=== PATIENT | male | born 1930 | race Caucasian/White ===

== ENCOUNTER 2019-07-07 07:24 | Observation (INO) | payer MEDICARE ==
--- NOTE | 2019-07-07 07:56 | ER Document Report ---
ED General - General Chief Complaint: Abdominal Distention Stated Complaint: SWOLLEN ABDOMEN Time Seen by Provider: 07/07/19 07:56 Primary Care Provider: TAYA GUARDADO MD [Primary Care Provider] - Follow up as needed Mode of Arrival: Medic Information source: Patient TRAVEL OUTSIDE OF THE [place] IN LAST 30 DAYS: No - HPI Onset: Last week Onset/Duration: Gradual Quality of pain: Pressure Severity: Moderate Pain Level: 3 Context: Patient is an 88-year-old male presenting to the emergency department chief complaint of swollen abdomen. Patient states that he is had multiple issues with fluid retention and ascites however he normally goes to [place] to have it managed however he states that he realized he can come to [facility] because it is closer to his home. Patient reports a 20 pound weight gain over the past week. At time of presentation patient is alert and oriented in no acute distress but does show increased work of breathing. Patient is jaundice and icteric. Associated symptoms: Shortness of breath, Weakness. denies: Nonproductive cough, Productive cough, Diarrhea, Nausea, Vomiting Exacerbated by: Movement, Walking Relieved by: Denies Similar symptoms previously: Yes Recently seen / treated by doctor: No - Related Data Allergies/Adverse Reactions: No Known Allergies Allergy (Verified 07/07/19 07:46) Past Medical History - General Information source: Patient - Social History Smoking Status: Unknown if Ever Smoked Cigarette use (# per day): No Smoking Education Provided: No Frequency of alcohol use: None Drug Abuse: None Family History: Reviewed & Not Pertinent Patient has suicidal ideation: No Patient has homicidal ideation: No GI Medical History: Reports: Hx Liver Failure Review of Systems - Review of Systems Constitutional: Weakness, Weight gain EENT: No symptoms reported Cardiovascular: No symptoms reported Respiratory: Short of breath Gastrointestinal: See HPI, Abdomen distended, Abdominal pain. denies: Diarrhea, Nausea, Vomiting Genitourinary: Retention Male Genitourinary: No symptoms reported Musculoskeletal: No symptoms reported Skin: No symptoms reported Hematologic/Lymphatic: No symptoms reported Neurological/Psychological: No symptoms reported -: Yes All other systems reviewed and negative Physical Exam - Vital signs Vitals: Temp Pulse Resp BP Pulse Ox 97.6 F 90 21 H 110/57 L 99 07/07/19 07:34 07/07/19 07:34 07/07/19 07:34 07/07/19 07:34 07/07/19 07:34 - Notes Notes: PHYSICAL EXAMINATION: GENERAL: Patient is a 88-year-old male presenting to the emergency department chief complaint of swollen abdomen and 20 pound weight gain in the past 1 week. HEAD: Atraumatic, normocephalic. EYES: Pupils equal round and reactive to light, extraocular movements intact, sclera are obviously icteric. ENT: nares patent, oropharynx clear without exudates. Moist mucous membranes. NECK: Normal range of motion, supple without lymphadenopathy, no appreciable JVD LUNGS: Lungs clear to auscultation bilaterally and equal. Patient does seem to have increased work of breathing no wheezes rales or rhonchi. HEART: Regular rate and rhythm without murmurs ABDOMEN: Soft, tender markedly distended, normal bowel sounds. No guarding, no rebound. No masses appreciated. EXTREMITIES: Active full range of motion, patient does show signs of cellulitis and fluid retention bilateral lower extremities. NEUROLOGICAL: No focal neurological deficits. Moves all extremities spontaneously and on command. SKIN: Warm, Dry, and intact. Patient does show signs of jaundice and has cellulitis bilateral lower extremities as described above Course - Re-evaluation Re-evalutation: 07/07/19 10:25 Patient has been maintained on a manager cardiac cath while in the emergency department. Patient has remained stable. Review of lab work demonstrates ammonia level of 52.5 BNP of 1110. Ultrasound demonstrates obvious large amount of fluid retention in the abdomen. Patient is given lactulose initial dose in the emergency department and 1 g of Rocephin IV for management of cellulitis to lower extremities. Patient is consulted to the hospitalist for admission management and paracentesis for the ascites. Patient is agreeable with care plan at this time. - Vital Signs Vital signs: Temp Pulse Resp BP Pulse Ox 97.6 F 90 13 107/53 L 100 07/07/19 07:34 07/07/19 07:34 07/07/19 10:00 07/07/19 09:31 07/07/19 10:00 - Laboratory Result Diagrams: 07/07/19 08:50 07/07/19 08:50 Laboratory results interpreted by me: 07/07/19 07/07/19 07/07/19 08:50 08:50 08:50 RBC 3.03 L Hgb 10.4 L Hct 29.7 L MCV 98 H MCH 34.3 H RDW 20.5 H Plt Count 104 L Lymph % (Auto) 7.2 L Seg Neutrophils % 84.3 H PT 19.9 H Sodium 136.6 L Potassium 3.5 L Carbon Dioxide 21 L Glucose 135 H Calcium 8.3 L Total Bilirubin 15.2 H Direct Bilirubin 11.9 H AST 155 H ALT 94 H Alkaline Phosphatase 353 H Ammonia NT-Pro-B Natriuret Pep Albumin 2.4 L Lipase 363.0 H 07/07/19 07/07/19 08:50 08:50 RBC Hgb Hct MCV MCH RDW Plt Count Lymph % (Auto) Seg Neutrophils % PT Sodium Potassium Carbon Dioxide Glucose Calcium Total Bilirubin Direct Bilirubin AST ALT Alkaline Phosphatase Ammonia 52.5 H NT-Pro-B Natriuret Pep 1110 H Albumin Lipase - Diagnostic Test Radiology reviewed: Reports reviewed - EKG Interpretation by Me EKG shows normal: Sinus rhythm Rate: Normal Rhythm: APC's Heart block present: 1st Degree When compared to previous EKG there are: Previous EKG unavailable Additional EKG results interpreted by me: 07/07/19 10:24 EKG is interpreted by me demonstrates sinus rhythm 84 bpm, patient does have intermittent PACs, there is a first-degree AV block with KY interval of 224 ms. No prior EKG is available. Discharge - Discharge Clinical Impression: Shortness of breath Cellulitis Qualifiers: Site of cellulitis: extremity Site of cellulitis of extremity: lower extremity Laterality: unspecified laterality Qualified Code(s): L03.119 - Cellulitis of unspecified part of limb Ascites Qualifiers: Ascites type: other type Qualified Code(s): R18.8 - Other ascites Condition: Fair Disposition: ADMITTED INPATIENT Admitting Provider: Cate (Hospitalist) Unit Admitted: Telemetry Referrals: TAYA GUARDADO MD [Primary Care Provider] - Follow up as needed
[2019-07-07 09:12] LABS: INTERNATIONAL RATION (INR) 1.67; PROTHROMBIN TIME 19.9 SEC (11.4-15.4)
[2019-07-07 09:19] LABS: ABSOLUTE EOSINOPHILS # (AUTO) 0.1 10^3/uL (0.0-0.6); ABSOLUTE LYMPHOCYTES (AUTO) 0.7 10^3/uL (0.5-4.7); ABSOLUTE MONOCYTES (AUTO) 0.7 10^3/uL (0.1-1.4); BASOPHILS % (AUTO) 0.2 % (0-2); EOSINOPHILS % (AUTO) 1.3 % (0-6); HEMATOCRIT 29.7 % (37.9-51.0); HEMOGLOBIN 10.4 g/dL (13.5-17.0); LYMPHOCYTES % (AUTO) 7.2 % (13-45); MEAN CORPUSCULAR HEMOGLOBIN 34.3 pg (27.0-33.4); MEAN CORPUSCULAR VOLUME 98 fl (80-97); PLATELET COUNT 104 10^3/uL (150-450); RED BLOOD COUNT 3.03 10^6/uL (4.35-5.55); RED CELL DISTRIBUTION WIDTH 20.5 % (11.5-14.0); SEGMENTED NEUTROPHILS % (AUTO) 84.3 % (42-78); TOTAL CELLS COUNTED % (AUTO) 100 %; WHITE BLOOD COUNT 9.5 10^3/uL (4.0-10.5)
--- NOTE | 2019-07-07 09:24 | RADIOLOGY REPORT (SQ) ---
EXAM DESCRIPTION: CHEST SINGLE VIEW IMAGES COMPLETED DATE/TIME: 07/07/2019 9:15 am REASON FOR STUDY: sob COMPARISON: None. EXAM PARAMETERS: NUMBER OF VIEWS: One view. TECHNIQUE: Single frontal radiographic view of the chest acquired. RADIATION DOSE: NA LIMITATIONS: None. FINDINGS: LUNGS AND PLEURA: No opacities, masses or pneumothorax. No pleural effusion. MEDIASTINUM AND HILAR STRUCTURES: No masses. Contour normal. HEART AND VASCULAR STRUCTURES: Heart normal in size. Normal vasculature. BONES: No acute findings. HARDWARE: None in the chest. OTHER: No other significant finding. IMPRESSION: NO ACUTE RADIOGRAPHIC FINDING IN THE CHEST. TECHNICAL DOCUMENTATION: JOB ID: [id number] 2010 [employer]- All Rights Reserved Reading location - IP/workstation name: [email or web address]
[2019-07-07 09:27] LABS: ALBUMIN 2.4 g/dL (3.5-5.0); ALKALINE PHOSPHATASE 353 U/L (38-126); ANION GAP 11 (5-19); ASPARTATE AMINO TRANSFERASE 155 U/L (17-59); BILIRUBIN,DIRECT 11.9 mg/dL (0.0-0.4); BILIRUBIN,TOTAL 15.2 mg/dL (0.2-1.3); BLOOD UREA NITROGEN 20 mg/dL (7-20); CALCIUM 8.3 mg/dL (8.4-10.2); CARBON DIOXIDE 21 mmol/L (22-30); CHLORIDE 105 mmol/L (98-107); CREATINE KINASE 69 U/L (55-170); GLUCOSE 135 mg/dL (75-110); POTASSIUM 3.5 mmol/L (3.6-5.0); TOTAL PROTEIN 6.9 g/dL (6.3-8.2)
[2019-07-07 09:41] LABS: TROPONIN I 0.047 ng/mL
--- NOTE | 2019-07-07 09:43 | RADIOLOGY REPORT (SQ) ---
EXAM DESCRIPTION: U/S ABDOMEN LIMITED W/O DOP IMAGES COMPLETED DATE/TIME: 07/07/2019 9:31 am REASON FOR STUDY: Eval for ascites COMPARISON: None. TECHNIQUE: Limited Static and real time quinonez scale imaging performed of the 4 abdominal quadrants an d the midline. LIMITATIONS: None. FINDINGS: ASCITES: Large volume ascites. OTHER: No other significant finding. IMPRESSION: Large volume ascites. TECHNICAL DOCUMENTATION: JOB ID: [id number] 2010 [employer]- All Rights Reserved Reading location - IP/workstation name: [email or web address]
[2019-07-07] MEDS ORDERED: LACTULOSE SYRUP 20 GM/30 ML UDCUP PO ONE (10:08)
[2019-07-07] MEDS ORDERED: CEFTRIAXONE 1 GM/D5W RTU 1 GM/50 ML RTUPB IV ONE (10:14)
[2019-07-07] MEDS ORDERED: ONDANSETRON 4 MG TAB.RAPDIS PO PRN (10:43)
[2019-07-07] MEDS ORDERED: ONDANSETRON HCL INJ/PF 4 MG/2 ML SDV IV PRN (10:43)
--- NOTE | 2019-07-07 11:08 | PDOC H&P ---
History of Present Illness Admission Date/PCP: 07/07/19 10:37 TAYA GUARDADO MD History of Present Illness: BRAN NEWMAN is a 88 year old male admitted with a history of worsening shortness of breath, abdominal pain, and 20 pound weight gain over 1 week. She states about 4 months ago he was diagnosed with liver failure and since then has been treated down in [place] at [facility] by gastroenterology. Patient states he came up here to [place] today because it is closer to his home. Patient also states that he has been unable to void for the last 24 hours due to abdominal distention. Patient is speaking in full sentences in no respiratory distress Patient states that he has had 2 abdominal paracentesis the first 1 about a month ago with 4 L drained and the second one about 2 weeks ago with 1 L drained. States he is not a liver transplant candidate. And also states that he wants to be a DNR. Patient states that he is always jaundiced now, this is not a new finding. Patient states he came in because his legs were starting to swell once again as they had done previously prior to his first tap. Social History Smoking Status: Unknown if Ever Smoked - Advance Directive Resuscitation Status: Do Not Resuscitate Family History Family History: Reviewed & Not Pertinent Parental Family History Reviewed: No Children Family History Reviewed: No Sibling(s) Family History Reviewed.: No Medication/Allergy Home Medications: Furosemide [Lasix 40 mg Tablet] DAILY 07/07/19 Pantoprazole Sodium [Protonix [address] Tablet] BID 07/07/19 Potassium Chloride BID 07/07/19 Spironolactone 100 mg PO DAILY 07/07/19 Allergies/Adverse Reactions: No Known Allergies Allergy (Verified 07/07/19 07:46) Review of Systems Constitutional: PRESENT: as per HPI, weakness Cardiovascular: PRESENT: dyspnea on exertion, edema. ABSENT: chest pain, or thropnea, palpitations Respiratory: PRESENT: dyspnea Gastrointestinal: PRESENT: abdominal pain Genitourinary: PRESENT: difficulty urinating Neurological: ABSENT: abnormal gait, abnormal speech, confusion, dizziness, focal weakness, syncope Psychiatric: ABSENT: anxiety, depression, homidical ideation, suicidal ideation Physical Exam Vital Signs: Temp Pulse Resp BP Pulse Ox 97.6 F 90 14 107/53 L 99 07/07/19 07:34 07/07/19 07:34 07/07/19 10:30 07/07/19 09:31 07/07/19 10:30 Intake & Output 07/06/19 07/07/19 07/08/19 06:59 06:59 06:59 Weight 88.7 kg General appearance: PRESENT: cooperative, hard of hearing, mild distress Respiratory exam: PRESENT: clear to auscultation nora. ABSENT: rales, rhonchi, wheezes Cardiovascular exam: PRESENT: RRR. ABSENT: diastolic murmur, rubs, systolic murmur GI/Abdominal exam: PRESENT: ascites, distended, firm, hypoactive bowel sounds, rigid, tenderness - Generalized tenderness due to distention Gentrourinary exam: PRESENT: other - Unable to insert Nava catheter due to suprapubic edema Extremities exam: PRESENT: pedal edema, +2 edema, other - Bilateral lower leg cellulitis secondary to edema Neurological exam: PRESENT: alert, awake, oriented to person, oriented to place, oriented to time, oriented to situation, CN II-XII grossly intact, other - Pa tient is alert awake oriented and very conversant about his medical history. ABSENT: motor sensory deficit Psychiatric exam: PRESENT: appropriate affect, normal mood. ABSENT: homicidal ideation, suicidal ideation Results Laboratory Results: 07/07/19 08:50 07/07/19 08:50 07/07/19 07/07/19 07/07/19 08:50 08:50 08:50 WBC 9.5 RBC 3.03 L Hgb 10.4 L Hct 29.7 L MCV 98 H MCH 34.3 H MCHC 35.0 RDW 20.5 H Plt Count 104 L Seg Neutrophils % 84.3 H Sodium 136.6 L Potassium 3.5 L Chloride 105 Carbon Dioxide 21 L Anion Gap 11 BUN 20 Creatinine 1.06 Est GFR ( Amer) > 60 Glucose 135 H Lactic Acid 2.0 Calcium 8.3 L Total Bilirubin 15.2 H AST 155 H Alkaline Phosphatase 353 H Ammonia Total Protein 6.9 Albumin 2.4 L Lipase 363.0 H 07/07/19 08:50 WBC RBC Hgb Hct MCV MCH MCHC RDW Plt Count Seg Neutrophils % Sodium Potassium Chloride Carbon Dioxide Anion Gap BUN Creatinine Est GFR ( Amer) Glucose Lactic Acid Calcium Total Bilirubin AST Alkaline Phosphatase Ammonia 52.5 H Total Protein Albumin Lipase 07/07/19 07/07/19 08:50 08:50 Creatine Kinase 69 Troponin I 0.047 NT-Pro-B Natriuret Pep 1110 H Impressions: Abdomen Ultrasound 07/07/19 08:09 IMPRESSION: Large volume ascites. Chest X-Ray 07/07/19 08:09 IMPRESSION: NO ACUTE RADIOGRAPHIC FINDING IN THE CHEST. Assessment and Plan - Diagnosis (1) Liver failure Is this a current diagnosis for this admission?: Yes (2) Increased ammonia level Is this a current diagnosis for this admission?: Yes (3) Ascites Qualifiers: Ascites type: other type Qualified Code(s): R18.8 - Other ascites Is this a current diagnosis for this admission?: Yes (4) Cellulitis Qualifiers: Site of cellulitis: extremity Site of cellulitis of extremity: lower extremity Laterality: unspecified laterality Qualified Code(s): L03.119 - Cellulitis of unspecified part of limb Is this a current diagnosis for this admission?: Yes (5) Shortness of breath Is this a current diagnosis for this admission?: Yes (6) Cirrhosis of liver Is this a current diagnosis for this admission?: Yes - Plan Summary Summary: Patient will be admitted for IV Lasix, spironolactone, lactulose, interventional radiology for paracentesis. 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 Hopefully we can treat patient's cellulitis and ascites and patient can be discharged back to the care of his primary physicians in [place]. Explained all this to the patient and he understands Patient will be treated with IV medications to include antibiotics, try to schedule IR today - Time Time Spent with patient: 35 or more minutes
[2019-07-07] MEDS ORDERED: SPIRONOLACTONE 25 MG TABLET PO ONE ×2 (11:30→19:06)
--- NOTE | 2019-07-07 13:14 | RADIOLOGY REPORT (SQ) ---
EXAM DESCRIPTION: U/S ABD PARACENTESIS IMAGES COMPLETED DATE/TIME: 07/07/2019 12:55 pm REASON FOR STUDY: ascites, liver failure COMPARISON 07/07/2019 LIMITATIONS: None. PROCEDURE: After obtaining informed consent, the patient was brought to the ultrasound suite. The p rocedure was performed with the patient on a gurney. Ultrasound was used to identify a prominent poc ket of ascites in the right lower quadrant. An appropriate access site was selected. The patient wa s prepped and draped in usual sterile fashion. The access site was anesthetized with 10 mL 1% lidoc mariann. A Ylfy-E-Jnirafvr needle was advanced into the fluid. After aspiration of fluid the needle, t he catheter was advanced off the needle into the fluid. A total of 9,600 mL of clear, straw-colored fluid was removed. The patient tolerated the procedure well left the department in satisfactory condi tion. IMPRESSION: Successful ultrasound-guided paracentesis COMMENT: Patient medication list reviewed: Yes- Quality ID# [id number]:Eligible professional attests to doc umenting in the medical record they obtained, updated, or reviewed the patient's current medications. TECHNICAL DOCUMENTATION: JOB ID: [id number] 2010 [employer]- All Rights Reserved Reading location - IP/workstation name: [email or web address]
[2019-07-07] MEDS: FAMOTIDINE INJ/PF 20 MG/2 ML SDV IV SCH ×2 (13:57→21:18)
[2019-07-07] MEDS: FUROSEMIDE INJ/PF 40 MG/4 ML SDV IV SCH ×2 (13:58→21:18)
[2019-07-07] MEDS: DOCUSATE SODIUM 100 MG CAPSULE PO SCH (13:58)
[2019-07-07 14:03] LABS: FLUID APPEARANCE CLEAR; FLUID COLOR YELLOW; FLUID SOURCE ASCITES; FLUID TYPE PERITONEAL; FLUID VISCOSITY LIQUID
[2019-07-07] MEDS: SPIRONOLACTONE 25 MG TABLET PO SCH (14:56)
[2019-07-07] MEDS: LACTULOSE SYRUP 20 GM/30 ML UDCUP PO SCH ×3 (14:56→21:18)
[2019-07-07] MEDS: ALBUMIN HUMAN 12.5 GM/50 ML RTUINJ IV SCH ×4 (14:57→18:15)
[2019-07-07] MEDS ORDERED: DEXTROSE 40% GEL 15 GM TUBE PO PRN ×2 (15:50)
[2019-07-07] MEDS ORDERED: DEXTROSE 50%-WATER 25 GM/50 ML DISP.SYRIN IV PRN ×2 (15:50)
[2019-07-07] MEDS ORDERED: GLUCAGON,HUMAN RECOMB 1 MG INJ IM PRN (15:50)
[2019-07-07] MEDS: INSULIN LISPRO 100 UNIT/ML 3 ML VIAL SUBCUT SCH ×2 (16:22→21:19)
--- NOTE | 2019-07-07 16:23 | EKG REPORT ---
SEVERITY:- ABNORMAL ECG - SINUS RHYTHM ATRIAL PREMATURE COMPLEX FIRST DEGREE AV BLOCK PROBABLE LEFT ATRIAL ABNORMALITY NONSPECIFIC INTRAVENTRICULAR CONDUCTION DELAY : Confirmed by: Addis Hutchinson 07-Jul-2019 16:23:01
[2019-07-07] MEDS ORDERED: CEFTRIAXONE 1 GM/D5W RTU 1 GM/50 ML RTUPB IV SCH (18:00)
--- NOTE | 2019-07-07 20:25 | RADIOLOGY REPORT (SQ) ---
EXAM DESCRIPTION: Unenhanced CT scan of the abdomen and pelvis CLINICAL HISTORY: 88 years Male; shortness of breath, s/p paracentesis today TECHNIQUE: CT of the abdomen and pelvis without intravenous contrast. All CT scans at this facility use dose modulation, iterative reconstruction, and/or weight based dosing when appropriate to reduce radiation dose to as low as reasonably achievable. This exam was performed according to our department optimization program which includes automated exposure control, adjustment of the mA and/or kv according to patient size and/or use of iterative reconstruction technique. COMPARISON: None. FINDINGS: Lower chest: Lung bases are clear. Coronary artery calcifications. There may be banding of the mitral valve. No pericardial abnormality. Calcifications are seen in the thoracic aorta. Abdomen: Liver and biliary tree: The liver is small and has a nodular appearance. The gallbladder surgically absent. Pancreas: Normal Spleen: The spleen is enlarged and measures 15 cm in length. Kidneys: Kidneys are normal in size, shape and position. No stones. No mass or hydronephrosis. Adrenal glands:Within normal limits Vascular structures: Calcifications are seen in the aorta and visceral vessels. There are dilated vascular structure seen extending from the splenic hilum to the region of the GE junction and these may represent varices. Retroperitoneum: Edema is present in the retroperitoneum. Abdominal wall: Small umbilical hernia is noted containing ascitic fluid. There is a right inguinal hernia also seen containing ascites GI: The unopacified bowel is not well seen. There may be thickening of the right colon at the splenic flexure. No bowel obstruction. Appendix: The appendix is not seen General: Ascites is present through the abdomen and pelvis. No free intraperitoneal air. Pelvis: Lymph nodes: No mass or lymphadenopathy Bladder: Unremarkable. Pelvis: No pelvic mass or adenopathy. 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 Methylmethacrylate is noted at L1 consistent with previous vertebroplasty. There appears to be fusion of the SI joints. IMPRESSION: 1. Findings suggestive of portal hypertension with splenomegaly, ascites and probable varices. 2. Atherosclerotic vascular calcifications. 3. Anasarca.
[2019-07-07] MEDS: CEFTRIAXONE 1 GM/D5W RTU 1 GM/50 ML RTUPB IV SCH (21:18)
[2019-07-07] MEDS: POTASSIUM CHLORIDE 10 MEQ TABLET.ER PO SCH (21:19)
[2019-07-08] MEDS ORDERED: MIDODRINE HCL 5 MG TABLET PO ONE ×2 (01:00→03:00)
[2019-07-08 01:56] LABS: APPEARANCE,URINE CLEAR; BILIRUBIN,URINE MODERATE (NEGATIVE); COLOR,URINE AMBER; GLUCOSE, URINE NEGATIVE (NEGATIVE); KETONES,URINE NEGATIVE (NEGATIVE); LEUKOCYTE ESTERASE,URINE NEGATIVE (NEGATIVE); NITRITE,URINE NEGATIVE (NEGATIVE); PROTEIN,URINE NEGATIVE (NEGATIVE); URINE SPECIFIC GRAVITY 1.012
[2019-07-08 05:50] LABS: ABSOLUTE EOSINOPHILS # (AUTO) 0.1 10^3/uL (0.0-0.6); ABSOLUTE LYMPHOCYTES (AUTO) 0.6 10^3/uL (0.5-4.7); ABSOLUTE MONOCYTES (AUTO) 0.5 10^3/uL (0.1-1.4); ABSOLUTE NEUT (AUTO) 7.1 10^3/uL (1.7-8.2); BASOPHILS % (AUTO) 0.5 % (0-2); EOSINOPHILS % (AUTO) 1.5 % (0-6); HEMATOCRIT 25.5 % (37.9-51.0); LYMPHOCYTES % (AUTO) 6.8 % (13-45); MEAN CORPUSCULAR HEMOGLOBIN 34.5 pg (27.0-33.4); MEAN CORPUSCULAR HGB CONC 35.2 g/dL (32.0-36.0); MEAN CORPUSCULAR VOLUME 98 fl (80-97); MONOCYTES % (AUTO) 6.3 % (3-13); RED CELL DISTRIBUTION WIDTH 20.4 % (11.5-14.0); SEGMENTED NEUTROPHILS % (AUTO) 84.9 % (42-78); TOTAL CELLS COUNTED % (AUTO) 100 %; WHITE BLOOD COUNT 8.4 10^3/uL (4.0-10.5)
[2019-07-08 05:53] LABS: INTERNATIONAL RATION (INR) 2.01; PROTHROMBIN TIME 23.1 SEC (11.4-15.4)
[2019-07-08 05:54] LABS: PARTIAL THROMBOPLASTIN TIME 43.6 SEC (23.5-35.8)
[2019-07-08 06:03] LABS: ALBUMIN 2.2 g/dL (3.5-5.0); ALKALINE PHOSPHATASE 240 U/L (38-126); AMYLASE 43 U/L (30-110); ANION GAP 7 (5-19); ASPARTATE AMINO TRANSFERASE 128 U/L (17-59); BILIRUBIN,DIRECT 12.7 mg/dL (0.0-0.4); BILIRUBIN,TOTAL 15.9 mg/dL (0.2-1.3); BLOOD UREA NITROGEN 22 mg/dL (7-20); CALCIUM 8.1 mg/dL (8.4-10.2); CARBON DIOXIDE 21 mmol/L (22-30); CHLORIDE 105 mmol/L (98-107); GLUCOSE 105 mg/dL (75-110); POTASSIUM 3.6 mmol/L (3.6-5.0)
[2019-07-08 06:17] LABS: PLATELET COUNT 82 10^3/uL (150-450)
[2019-07-08] MEDS: INSULIN LISPRO 100 UNIT/ML 3 ML VIAL SUBCUT SCH ×4 (07:38→21:40)
[2019-07-08] MEDS: CEFTRIAXONE 1 GM/D5W RTU 1 GM/50 ML RTUPB IV SCH ×2 (09:13→21:52)
[2019-07-08] MEDS: MIDODRINE HCL 5 MG TABLET PO SCH ×3 (09:14→17:23)
[2019-07-08] MEDS: POTASSIUM CHLORIDE 10 MEQ TABLET.ER PO SCH ×2 (09:14→21:52)
[2019-07-08] MEDS: FUROSEMIDE INJ/PF 40 MG/4 ML SDV IV SCH ×2 (09:14→21:51)
[2019-07-08] MEDS: LACTULOSE SYRUP 20 GM/30 ML UDCUP PO SCH ×4 (09:14→21:52)
[2019-07-08] MEDS: FAMOTIDINE INJ/PF 20 MG/2 ML SDV IV SCH ×2 (09:14→21:51)
[2019-07-08] MEDS: DOCUSATE SODIUM 100 MG CAPSULE PO SCH (09:15)
[2019-07-08] MEDS: SPIRONOLACTONE 25 MG TABLET PO SCH (09:15)
[2019-07-08] MEDS: MAGNESIUM SULFATE/D5W 1 GM/100 ML RTUPB IV SCH ×2 (10:41→11:47)
--- NOTE | 2019-07-08 10:48 | PDOC PROGRESS REPORT ---
Subjective Progress Note for:: 07/08/19 Reason For Visit: LIVER FAILURE,ASCITES, shortness OF BREATH,ABDOMINAL PAIN July 08, 2019 Admitted for abdominal ascites, cirrhosis, liver failure, abdominal pain, shortness of breath Physical Exam Vital Signs: Temp Pulse Resp BP Pulse Ox 98.3 F 77 16 81/40 L 95 07/07/19 23:46 07/08/19 05:00 07/07/19 23:46 07/08/19 05:00 07/07/19 23:46 Intake & Output 07/07/19 07/08/19 07/09/19 06:59 06:59 06:59 Intake Total 399 Output Total 600 Balance -201 Weight 82.5 kg General appearance: PRESENT: no acute distress Respiratory exam: PRESENT: clear to auscultation nora. ABSENT: rales, rhonchi, wheezes Cardiovascular exam: PRESENT: RRR. ABSENT: diastolic murmur, rubs, systolic murmur GI/Abdominal exam: PRESENT: distended, soft, other - No tenderness no rebound Neurological exam: PRESENT: alert, awake, oriented to person, oriented to place, oriented to time, oriented to situation, CN II-XII grossly intact. ABSENT: motor sensory deficit Psychiatric exam: PRESENT: appropriate affect, normal mood. ABSENT: homicidal ideation, suicidal ideation Skin exam: PRESENT: jaundice Results Laboratory Results: 07/08/19 05:29 07/08/19 05:29 07/07/19 07/08/19 07/08/19 11:35 00:10 05:29 WBC 8.4 RBC 2.60 L Hgb 9.0 L Hct 25.5 L MCV 98 H MCH 34.5 H MCHC 35.2 RDW 20.4 H Plt Count 82 L Seg Neutrophils % 84.9 H Sodium Potassium Chloride Carbon Dioxide Anion Gap BUN Creatinine Est GFR ( Amer) Glucose Calcium Magnesium Total Bilirubin AST Alkaline Phosphatase Ammonia Total Protein Albumin Amylase Lipase Urine Color NEVA Urine Appearance CLEAR Urine pH 5.0 Ur Specific Kinta 1.012 Urine Protein NEGATIVE Urine Glucose (UA) NEGATIVE Urine Ketones NEGATIVE Urine Blood NEGATIVE Urine Nitrite NEGATIVE Ur Leukocyte Esterase NEGATIVE Urine WBC (Auto) 4 Urine RBC (Auto) 0 Fluid Type PERITONEAL Fluid Source ASCITES Fluid Color YELLOW Fluid Appearance CLEAR Fluid Viscosity LIQUID Fluid WBC 79 Fluid RBC 54 07/08/19 07/08/19 05:29 05:29 WBC RBC Hgb Hct MCV MCH MCHC RDW Plt Count Seg Neutrophils % Sodium 132.9 L Potassium 3.6 Chloride 105 Carbon Dioxide 21 L Anion Gap 7 BUN 22 H Creatinine 0.97 Est GFR ( Amer) > 60 Glucose 105 Calcium 8.1 L Magnesium 1.4 L Total Bilirubin 15.9 H AST 128 H Alkaline Phosphatase 240 H Ammonia 23.6 Total Protein 6.0 L Albumin 2.2 L Amylase 43 Lipase 148.8 Urine Color Urine Appearance Urine pH Ur Specific Kinta Urine Protein Urine Glucose (UA) Urine Ketones Urine Blood Urine Nitrite Ur Leukocyte Esterase Urine WBC (Auto) Urine RBC (Auto) Fluid Type Fluid Source Fluid Color Fluid Appearance Fluid Viscosity Fluid WBC Fluid RBC 07/07/19 07/07/19 07/07/19 08:50 08:50 13:09 Creatine Kinase 69 66 Troponin I 0.047 NT-Pro-B Natriuret Pep 1110 H Impressions: Abdomen/Pelvis CT 07/07/19 00:00 IMPRESSION: 1. Findings suggestive of portal hypertension with splenomegaly, ascites and probable varices. 2. Atherosclerotic vascular calcifications. 3. Anasarca. Paracentesis Ultrasound 07/07/19 00:00 IMPRESSION: Successful ultrasound-guided paracentesis Abdomen Ultrasound 07/07/19 08:09 IMPRESSION: Large volume ascites. Chest X-Ray 07/07/19 08:09 IMPRESSION: NO ACUTE RADIOGRAPHIC FINDING IN THE CHEST. Assessment and Plan - Diagnosis (1) Liver failure Is this a current diagnosis for this admission?: Yes (2) Increased ammonia level Is this a current diagnosis for this admission?: Yes (3) Ascites Qualifiers: Ascites type: other type Qualified Code(s): R18.8 - Other ascites Is this a current diagnosis for this admission?: Yes (4) Cellulitis Qualifiers: Site of cellulitis: extremity Site of cellulitis of extremity: lower extremity Laterality: unspecified laterality Qualified Code(s): L03.119 - Cellulitis of unspecified part of limb Is this a current diagnosis for this admission?: Yes (5) Shortness of breath Is this a current diagnosis for this admission?: Yes (6) Cirrhosis of liver Is this a current diagnosis for this admission?: Yes - Plan Summary Summary: Patient will be admitted for IV Lasix, spironolactone, lactulose, interventional radiology for paracentesis. 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 Hopefully we can treat patient's cellulitis and ascites and patient can be discharged back to the care of his primary physicians in [place]. Explained all this to the patient and he understands Patient will be treated with IV medications to include antibiotics, try to schedule IR today 07/08/2019 Vital signs temperature 98.3 pulse 77, earlier was 81/40 at 7:00 this morning repeat blood pressures pending through the night and yesterday his pressures were averaging around 100/50. Repeat blood pressure manual this morning was 82/40 Patient is asymptomatic no signs of weakness syncope lethargy or tachycardia Abdomen is larger than it was yesterday following his paracentesis however it is soft nontender. Is not as large as it was when he was admitted Patient had 9 liters of fluid drawn off yesterday. Magnesium this morning 1.4, replacements have been ordered , albumin normal 2.2 , ammonia levels down from 52-23 Liver functions are improved but bilirubin is still elevated Going to have them repeat his ultrasound of his abdomen and try to quantify his ascites. Have ordered Midrin for his low blood pressure. Held his diuretics this morning due to his hypotension. Clinically patient feels well less shortness of breath not having any complaints. - Time Time Spent with patient: 25-34 minutes
--- NOTE | 2019-07-08 12:26 | RADIOLOGY REPORT (SQ) ---
EXAM DESCRIPTION: U/S ABDOMEN LIMITED W/O DOP IMAGES COMPLETED DATE/TIME: 07/08/2019 11:48 am REASON FOR STUDY: quantify ascites, today vs yesterday R10.84 GENERALIZED ABDOMINAL PAIN COMPARISON: 07/07/2019 TECHNIQUE: Limited Static and real time quinonez scale imaging performed of the 4 abdominal quadrants an d the midline. LIMITATIONS: None. FINDINGS: ASCITES: Markedly decreased ascites compared to prior exam dated 07/07/2019. There are few pockets of residual ascites, largest within the left lower quadrant measuring up to 12 cm. OTHER: No other significant finding. IMPRESSION: Markedly reduced ascites compared to prior exam. Scattered residual pockets, largest wi thin the left lower quadrant. TECHNICAL DOCUMENTATION: JOB ID: [id number] 2010 [employer]- All Rights Reserved Reading location - IP/workstation name: [email or web address]
[2019-07-08] MEDS: ALBUMIN HUMAN 12.5 GM/50 ML RTUINJ IV SCH ×2 (18:54→20:15)
[2019-07-09 06:34] LABS: ABSOLUTE EOSINOPHILS # (AUTO) 0.4 10^3/uL (0.0-0.6); ABSOLUTE LYMPHOCYTES (AUTO) 0.5 10^3/uL (0.5-4.7); ABSOLUTE MONOCYTES (AUTO) 0.5 10^3/uL (0.1-1.4); ABSOLUTE NEUT (AUTO) 5.1 10^3/uL (1.7-8.2); BASOPHILS % (AUTO) 0.4 % (0-2); EOSINOPHILS % (AUTO) 6.7 % (0-6); HEMATOCRIT 26.3 % (37.9-51.0); HEMOGLOBIN 9.6 g/dL (13.5-17.0); LYMPHOCYTES % (AUTO) 8.1 % (13-45); MEAN CORPUSCULAR HEMOGLOBIN 35.3 pg (27.0-33.4); MEAN CORPUSCULAR HGB CONC 36.4 g/dL (32.0-36.0); MEAN CORPUSCULAR VOLUME 97 fl (80-97); MONOCYTES % (AUTO) 7.9 % (3-13); RED BLOOD COUNT 2.71 10^6/uL (4.35-5.55); SEGMENTED NEUTROPHILS % (AUTO) 76.9 % (42-78); TOTAL CELLS COUNTED % (AUTO) 100 %; WHITE BLOOD COUNT 6.6 10^3/uL (4.0-10.5)
[2019-07-09 06:37] LABS: INTERNATIONAL RATION (INR) 1.72; PROTHROMBIN TIME 20.4 SEC (11.4-15.4)
[2019-07-09 06:38] LABS: PARTIAL THROMBOPLASTIN TIME 41.6 SEC (23.5-35.8)
[2019-07-09 07:13] LABS: PLATELET COUNT 86 10^3/uL (150-450)
[2019-07-09] MEDS: INSULIN LISPRO 100 UNIT/ML 3 ML VIAL SUBCUT SCH ×3 (07:27→19:59)
[2019-07-09] MEDS: MIDODRINE HCL 5 MG TABLET PO SCH ×2 (09:55→14:06)
[2019-07-09] MEDS: CEFTRIAXONE 1 GM/D5W RTU 1 GM/50 ML RTUPB IV SCH (09:55)
[2019-07-09] MEDS: POTASSIUM CHLORIDE 10 MEQ TABLET.ER PO SCH (09:55)
[2019-07-09] MEDS: FAMOTIDINE INJ/PF 20 MG/2 ML SDV IV SCH (09:55)
[2019-07-09] MEDS: DOCUSATE SODIUM 100 MG CAPSULE PO SCH (09:56)
[2019-07-09] MEDS: LACTULOSE SYRUP 20 GM/30 ML UDCUP PO SCH ×2 (09:56→14:07)
[2019-07-09] MEDS: FUROSEMIDE INJ/PF 40 MG/4 ML SDV IV SCH (12:04)
[2019-07-09] MEDS: SPIRONOLACTONE 25 MG TABLET PO SCH (12:04)
[2019-07-09 12:49] LABS: ALBUMIN 2.4 g/dL (3.5-5.0); ALKALINE PHOSPHATASE 245 U/L (38-126); ANION GAP 6 (5-19); ASPARTATE AMINO TRANSFERASE 122 U/L (17-59); BILIRUBIN,DIRECT 14.1 mg/dL (0.0-0.4); BILIRUBIN,TOTAL 18.2 mg/dL (0.2-1.3); BLOOD UREA NITROGEN 22 mg/dL (7-20); CALCIUM 8.6 mg/dL (8.4-10.2); CARBON DIOXIDE 23 mmol/L (22-30); CHLORIDE 102 mmol/L (98-107); GLUCOSE 109 mg/dL (75-110); POTASSIUM 3.9 mmol/L (3.6-5.0); TOTAL PROTEIN 6.2 g/dL (6.3-8.2)
[2019-07-09 13:43] VITALS: BP 81/40
--- NOTE | 2019-07-10 10:38 | PDOC DISCHARGE SUMMARY ---
Impression - Admit/DC Date/PCP Admission Date/Primary Care Provider: 07/07/19 10:37 TAYA GUARDADO MD Discharge Date: 07/09/19 - Discharge Diagnosis (1) Liver failure Is this a current diagnosis for this admission?: Yes (2) Increased ammonia level Is this a current diagnosis for this admission?: Yes (3) Ascites Is this a current diagnosis for this admission?: Yes (4) Cellulitis Is this a current diagnosis for this admission?: Yes (5) Shortness of breath Is this a current diagnosis for this admission?: Yes (6) Cirrhosis of liver Is this a current diagnosis for this admission?: Yes - Assessment Summary: Patient will be admitted for IV Lasix, spironolactone, lactulose, interventional radiology for paracentesis. I will not consult gastroenterology as he already has a cuff matcher in [place]. Hopefully we can treat patient's cellulitis and ascites and patient can be discharged back to the care of his primary physicians in [place]. Explained all this to the patient and he understands Patient will be treated with IV medications to include antibiotics, try to schedule IR today 07/08/2019 Vital signs temperature 98.3 pulse 77, earlier was 81/40 at 7:00 this morning repeat blood pressures pending through the night and yesterday his pressures were averaging around 100/50. Repeat blood pressure manual this morning was 82/40 Patient is asymptomatic no signs of weakness syncope lethargy or tachycardia Abdomen is larger than it was yesterday following his paracentesis however it is soft nontender. Is not as large as it was when he was admitted Patient had 9 liters of fluid drawn off yesterday. Magnesium this morning 1.4, replacements have been ordered , albumin normal 2.2 , ammonia levels down from 52-23 Liver functions are improved but bilirubin is still elevated Going to have them repeat his ultrasound of his abdomen and try to quantify his ascites. Have ordered Midrin for his low blood pressure. Held his diuretics this morning due to his hypotension. Clinically patient feels well less shortness of breath not having any complaints. 07/09/2019 Patient is to be discharged to home today. Patient has only minimal shortness of breath Host of patient's labs have improved although bilirubin is still elevated Patient's white count remains normal 6.6, platelets 86,000 which is stable Patient came in with an INR of 1.67 at discharge it is 1.72, PTT is still slightly elevated at 41.6, PT stable at 20.4 Today sodium 131 potassium 3.9 BUN of 22 creatinine 0.94 glucose 156 Total bilirubin 18.2 direct bilirubin 14.1 AST down to 122 ALT is down to 78 Ammonia level is now normal at 10.4, total protein 6.2 and albumin is 2.4 Cultures were negative x72 hours Patient was discharged home on Midodrine 10 mg 3 times daily as needed for low blood pressure Lactulose 10 g 4 times daily Keflex 500 mg 4 times daily Lasix 40 mg every 12 hours To patient's daughter by phone and told her that because of her lack of gastroenterology coverage if it was not an emergency patient should go to [facility] where his primary care doctors are located. Obviously if it is an emergency he should go to the closest ER Patient may end up needing a paracentesis procedure every week or every 2 weeks scheduled. Patient was admitted to the hospital here for his shortness of breath he was actually scheduled are trying to be scheduled for paracentesis but evidently there was some difficulty with scheduling. Came to our ER short of breath. Patient had 9 L of fluid drawn off by interventional radiology and was much improved - Additional Information Resuscitation Status: Do Not Resuscitate Discharge Diet: As Tolerated Discharge Activity: Balance Activity w/Rest, Bedrest Referrals: [facility], Gastroenterology [Other] - 07/14/19 2:30 pm Prescriptions: Lactulose [Cephulac Syrup 20 gm/30 ml Udcup] 10 gm PO QID 14 Days #500 udc Cephalexin Monohydrate [Keflex 500 mg Capsule] 500 mg PO QID #20 capsule Furosemide [Lasix 40 mg Tablet] 40 mg PO Q12H 30 Days #60 tablet Midodrine HCl 10 mg PO TID 30 Days #90 tablet Home Medications: Pantoprazole Sodium [Protonix [address] Tablet] 40 mg PO BID 07/07/19 Spironolactone 100 mg PO DAILY 07/07/19 Cephalexin Monohydrate [Keflex 500 mg Capsule] 500 mg PO QID #20 capsule 07/09/19 Furosemide [Lasix 40 mg Tablet] 40 mg PO Q12H 30 Days #60 tablet 07/09/19 Lactulose [Cephulac Syrup 20 gm/30 ml Udcup] 10 gm PO QID 14 Days #500 udc 04/02/20 Midodrine HCl 10 mg PO TID 30 Days #90 tablet 07/09/19 History of Present Illiness History of Present Illness: BRAN NEWMAN is a 88 year old male admitted with a history of worsening shortness of breath, abdominal pain, and 20 pound weight gain over 1 week. She states about 4 months ago he was diagnosed with liver failure and since then has been treated down in [place] at [facility] by gastroenterology. Patient states he came up here to [place] today because it is closer to his home. Patient also states that he has been unable to void for the last 24 hours due to abdominal distention. Patient is speaking in full sentences in no respiratory distress Patient states that he has had 2 abdominal paracentesis the first 1 about a month ago with 4 L drained and the second one about 2 weeks ago with 1 L drained. States he is not a liver transplant candidate. And also states that he wants to be a DNR. Patient states that he is always jaundiced now, this is not a new finding. Patient states he came in because his legs were starting to swell once again as they had done previously prior to his first tap. Physical Exam Vital Signs: Temp Pulse Resp BP Pulse Ox 97.3 F 78 18 81/40 L 100 07/09/19 13:42 07/09/19 13:42 07/09/19 13:42 07/09/19 13:42 07/09/19 13:42 Intake & Output 07/09/19 07/10/19 07/11/19 06:59 06:59 06:59 Intake Total 2394 Output Total 1720 Balance 674 Weight 79.1 kg Results Laboratory Results: WBC 6.6 10^3/uL (4.0-10.5) 07/09/19 06:04 RBC 2.71 10^6/uL (4.35-5.55) L 07/09/19 06:04 Hgb 9.6 g/dL (13.5-17.0) L 07/09/19 06:04 Hct 26.3 % (37.9-51.0) L 07/09/19 06:04 MCV 97 fl (80-97) 07/09/19 06:04 MCH 35.3 pg (27.0-33.4) H 07/09/19 06:04 MCHC 36.4 g/dL (32.0-36.0) H 07/09/19 06:04 RDW 20.0 % (11.5-14.0) H 07/09/19 06:04 Plt Count 86 10^3/uL (150-450) L 07/09/19 06:04 Lymph % (Auto) 8.1 % (13-45) L 07/09/19 06:04 [place] % (Auto) 7.9 % (3-13) 07/09/19 06:04 Eos % (Auto) 6.7 % (0-6) H 07/09/19 06:04 Baso % (Auto) 0.4 % (0-2) 07/09/19 06:04 Absolute Neuts (auto) 5.1 10^3/uL (1.7-8.2) 07/09/19 06:04 Absolute Lymphs (auto) 0.5 10^3/uL (0.5-4.7) 07/09/19 06:04 Absolute Monos (auto) 0.5 10^3/uL (0.1-1.4) 07/09/19 06:04 Absolute Eos (auto) 0.4 10^3/uL (0.0-0.6) 07/09/19 06:04 Absolute Basos (auto) 0.0 10^3/uL (0.0-0.2) 07/09/19 06:04 Seg Neutrophils % 76.9 % (42-78) 07/09/19 06:04 PT 20.4 SEC (11.4-15.4) H 07/09/19 06:04 INR 1.72 07/09/19 06:04 APTT 41.6 SEC (23.5-35.8) H 07/09/19 06:04 Sodium 131.4 mmol/L (137-145) L 07/09/19 06:04 Potassium 3.9 mmol/L (3.6-5.0) 07/09/19 06:04 Chloride 102 mmol/L (98-107) 07/09/19 06:04 Carbon Dioxide 23 mmol/L (22-30) 07/09/19 06:04 Anion Gap 6 (5-19) 07/09/19 06:04 BUN 22 mg/dL (7-20) H 07/09/19 06:04 Creatinine 0.94 mg/dL (0.52-1.25) 07/09/19 06:04 Est GFR ( Amer) > 60 (>60) 07/09/19 06:04 Est GFR (MDRD) Non-Af > 60 (>60) 07/09/19 06:04 Glucose 109 mg/dL (75-110) 07/09/19 06:04 POC Glucose 156 mg/dL (70-110) H 07/09/19 11:35 Lactic Acid 2.0 mmol/L (0.7-2.1) 07/07/19 08:50 Calcium 8.6 mg/dL (8.4-10.2) 07/09/19 06:04 Magnesium 1.4 mg/dL (1.6-2.3) L 07/08/19 05:29 Total Bilirubin 18.2 mg/dL (0.2-1.3) H 07/09/19 06:04 Direct Bilirubin 14.1 mg/dL (0.0-0.4) H 07/09/19 06:04 Neonat Total Bilirubin Not Reportable 07/09/19 06:04 Neonat Direct Bilirubin Not Reportable 07/09/19 06:04 Neonat Indirect Bili Not Reportable 07/09/19 06:04 AST 122 U/L (17-59) H 07/09/19 06:04 ALT 78 U/L (<50) H 07/09/19 06:04 Alkaline Phosphatase 245 U/L (38-126) H 07/09/19 06:04 Ammonia 10.4 umol/L (9-33) 07/09/19 06:04 Creatine Kinase 66 U/L (55-170) 07/07/19 13:09 Troponin I 0.047 ng/mL 07/07/19 08:50 NT-Pro-B Natriuret Pep 1110 pg/mL (<450) H 07/07/19 08:50 Total Protein 6.2 g/dL (6.3-8.2) L 07/09/19 06:04 Albumin 2.4 g/dL (3.5-5.0) L 07/09/19 06:04 Amylase 48 U/L (30-110) 07/09/19 06:04 Lipase 267.7 U/L (23-300) 07/09/19 06:04 Urine Color NEVA 07/08/19 00:10 Urine Appearance CLEAR 07/08/19 00:10 Urine pH 5.0 (5.0-9.0) 07/08/19 00:10 Ur Specific [place] 1.012 07/08/19 00:10 Urine Protein NEGATIVE mg/dL (NEGATIVE) 07/08/19 00:10 Urine Glucose (UA) NEGATIVE mg/dL (NEGATIVE) 07/08/19 00:10 Urine Ketones NEGATIVE mg/dL (NEGATIVE) 07/08/19 00:10 Urine Blood NEGATIVE (NEGATIVE) 07/08/19 00:10 Urine Nitrite NEGATIVE (NEGATIVE) 07/08/19 00:10 Urine Bilirubin MODERATE (NEGATIVE) H 07/08/19 00:10 Urine Urobilinogen 2.0 mg/dL (<2.0) H 07/08/19 00:10 Ur Leukocyte Esterase NEGATIVE (NEGATIVE) 07/08/19 00:10 Urine WBC (Auto) 4 /HPF 07/08/19 00:10 Urine RBC (Auto) 0 /HPF 07/08/19 00:10 U Hyaline Cast (Auto) 12 /LPF 07/08/19 00:10 Urine Bacteria (Auto) TRACE /HPF 07/08/19 00:10 Squamous Epi Cells Auto <1 /HPF 07/08/19 00:10 Urine Mucus (Auto) OCC /LPF 07/08/19 00:10 Urine Ascorbic Acid NEGATIVE (NEGATIVE) 07/08/19 00:10 Fluid Type PERITONEAL 07/07/19 11:35 Fluid Source ASCITES 07/07/19 11:35 Fluid Color YELLOW 07/07/19 11:35 Fluid Appearance CLEAR 07/07/19 11:35 Fluid Viscosity LIQUID 07/07/19 11:35 Fluid WBC 79 /uL 07/07/19 11:35 Fluid RBC 54 /uL 07/07/19 11:35 Fluid Seg Neutrophils 41 % 07/07/19 11:35 Fluid Lymphocytes 47 % 07/07/19 11:35 Fluid Monocytes 12 % 07/07/19 11:35 Fluid Eosinophils 0 % 07/07/19 11:35 Fluid Basophils 0 % 07/07/19 11:35 07/07/19 08:50 Troponin I 0.047 NT-Pro-B Natriuret Pep 1110 H Impressions: Abdomen/Pelvis CT 07/07/19 00:00 IMPRESSION: 1. Findings suggestive of portal hypertension with splenomegaly, ascites and probable varices. 2. Atherosclerotic vascular calcifications. 3. Anasarca. Paracentesis Ultrasound 07/07/19 00:00 IMPRESSION: Successful ultrasound-guided paracentesis Abdomen Ultrasound 07/07/19 08:09 IMPRESSION: Large volume ascites. Chest X-Ray 07/07/19 08:09 IMPRESSION: NO ACUTE RADIOGRAPHIC FINDING IN THE CHEST. Abdomen Ultrasound 07/08/19 00:00 IMPRESSION: Markedly reduced ascites compared to prior exam. Scattered residual pockets, largest within the left lower quadrant. Stroke Is this a Stroke Patient?: No Acute Heart Failure - Is this a Heart Failure Patient?: No
== END 2019-07-09 16:45 | disposition home or self-care (01) ==
LOC: ER 07:24 → INTOOBSV 10:37 → EH 10:37 → 4S 13:00
PROVIDERS: ADMIT Internal Medicine; ATTEND Physician Assistant
DX: K72.90 Hepatic failure, unspecified without coma (principal); R18.8 Other ascites; R06.02 Shortness of breath; L03.116 Cellulitis of left lower limb; L03.115 Cellulitis of right lower limb; R79.89 Other specified abnormal findings of blood chemistry; K74.60 Unspecified cirrhosis of liver; I95.9 Hypotension, unspecified; I49.1 Atrial premature depolarization; I44.0 Atrioventricular block, first degree; Z66 Do not resuscitate; Z79.899 Other long term (current) drug therapy
CPT/HCPCS: 93005; 99285; 96374; 36415 ×3; 87040; 82962 ×3; 82140 ×3; 82150 ×2; 82550; 83605; 83690 ×3; 83735; 85025 ×3; 85610 ×3; 85730 ×3; 89050; 80053 ×3; 81001; 84484; 83880; 71045; 76705 ×2; 49083; 74176; 93010; P9047 ×2; J1940 ×3; A9270 ×11; J3475; S0028 ×3; J0696 ×3; J1815